=== PATIENT | female | born 1950 | race Caucasian/White ===

== ENCOUNTER → 2023-11-03 13:49 | Outpatient (CLI) | payer MEDICARE, SELFPAY ==
[2023-11-03 14:38] LABS: BUN Creatinine Ratio 22.9 (6-22); Blood Urea Nitrogen 19 mg/dL (7-17); Calcium 10.7 mg/dL (8.4-10.2); Carbon Dioxide 28 mmol/L (22-32); Chloride 108 mmol/L (98-107); Estimated Glomerular Filt Rate > 60 mL/min (>60); Glucose 88 mg/dL (80-110); HEMOLYSIS < 15 (0-50); Potassium 4.6 mmol/L (3.4-5.1); Sodium 138 mmol/L (137-145)
[2023-11-03 15:07] LABS: TSH w/ Reflex to FT4 0.92 uIU/mL (0.47-4.68)
== END ==
PROVIDERS: PCP Family Medicine; Referring Provider Family Medicine; Visit Provider Family Medicine
DX: Z00.00 Encounter for general adult medical examination without abnormal findings (principal); I12.9 Hypertensive chronic kidney disease with stage 1 through stage 4 chronic kidney disease, or unspecified chronic kidney disease; N18.9 Chronic kidney disease, unspecified; E03.9 Hypothyroidism, unspecified
CPT/HCPCS: 36415; 80048; 84443

== ENCOUNTER → 2023-12-14 10:25 | Outpatient (CLI) | payer MEDICARE, SELFPAY ==
[2023-12-14 12:00] LABS: Vitamin D 25 Hydroxy (D3) 89.2 ng/mL (30.0-100.0)
[2023-12-15 11:58] LABS: Ionized Calcium 5.3 mg/dL (4.5-5.6)
[2023-12-15 18:42] LABS: Free Kappa Lt Chains, Serum 17.2 mg/L (3.3-19.4); Free Lambda Lt Chains,Serum 17.9 mg/L (5.7-26.3)
== END ==
PROVIDERS: PCP Family Medicine; Referring Provider Family Medicine; Visit Provider Family Medicine
DX: E83.52 Hypercalcemia (principal)
CPT/HCPCS: 36415; 82306; 82330; 83883; 83970; 84155; 84165

== ENCOUNTER → 2024-06-07 14:02 | Outpatient (CLI) | payer MEDICARE, SELFPAY ==
--- NOTE | 2024-06-07 14:04 | DI.RAD.S_ITS ---
PROCEDURE: XR DEXA AXIAL SKELETON INDICATIONS: hyperparathyroidism COMPARISON: None. FINDINGS: Lumbar Spine: Bone mineral density 0.78 g/cm2, T score -2.5 Left Hip: Bone mineral density 0.72 g/cm2, T score -1.8,. Left Femoral Neck: Bone mineral density 0.54 g/cm2, T score -2.8,. Right Hip: Bone mineral density 0.70 g/cm2, T score -2,. Right Femoral Neck: Bone mineral density 0.55 g/cm2, T score -2.7,. Fracture Risk Calculation (when applicable): 10-year fracture risk of a major osteoporotic fracture 18 percent and of a hip fracture 6.4 percent. (T score greater or equal to -1.0 to: NORMAL) (T score from -1.1 to -2.4: OSTEOPENIA) (T score less than or equal to -2.5: OSTEOPOROSIS) IMPRESSION: Osteoporosis. Follow-up guidelines as follows: Osteoporosis: Consider a repeat DEXA and Vertebral Fracture Assessment (VFA) exam in 2 years or sooner if medically necessary, to reassess this patient's status. Osteopenia: Consider a repeat DEXA in 2-3 years to reassess this patient's status, or if there is a new clinical indication. Normal: Consider a repeat DEXA in 5 years or sooner, or if there is a new clinical indication. All treatment decisions require clinical judgment and consideration of individual patient factors, including patient preferences, comorbidities, previous drug use, risk factors not captured in the FRAX model (e.g., frailty, falls, vitamin D deficiency, increased bone turnover, interval significant decline in bone density ) and possible under- or over-estimation of fracture risk by FRAX. In addition, the NOF Guide recommends that FDA-approved medical therapies be considered in postmenopausal women and men age >= 50 years with a: * Hip or vertebral (clinical or morphometric) fracture * T-score of <=-2.5 at the spine or hip * Ten-year fracture probability by FRAX of >= 3% for hip fracture or >=20% for major osteoporotic fracture. People with diagnosed cases of osteoporosis or at high risk for fracture should have regular bone mineral density tests. For patients eligible for Medicare, routine testing is allowed once every 2 years. The testing frequency can be increased to one year for patients who have rapidly progressing disease, those who are receiving or discontinuing medical therapy to restore bone mass, or have additional risk factors. Dictated by: Juni Morin M.D. on 06/07/2024 at 17:20 Approved by: Juni Morin M.D. on 06/07/2024 at 17:21
== END ==
LOC: RAD 14:03
PROVIDERS: PCP Family Medicine; Referring Provider Student in an Organized Health Care Education/Training Program; Visit Provider Student in an Organized Health Care Education/Training Program
DX: E21.3 Hyperparathyroidism, unspecified (principal); M81.0 Age-related osteoporosis without current pathological fracture
CPT/HCPCS: 77080

== ENCOUNTER → 2024-11-08 13:30 | Outpatient (CLI) | payer MEDICARE, SELFPAY ==
[2024-11-08 14:58] LABS: Albumin 4.3 g/dL (3.5-5.0); BUN Creatinine Ratio 20.2 (6-22); Blood Urea Nitrogen 17 mg/dL (7-17); Calcium 10.5 mg/dL (8.4-10.2); Carbon Dioxide 24 mmol/L (22-32); Chloride 105 mmol/L (98-107); Cholesterol 189 mg/dL (140-199); Estimated Glomerular Filt Rate > 60 mL/min (>60); Glucose 100 mg/dL (70-99); HDL Cholesterol 63 mg/dL (40-60); HEMOLYSIS < 15 (0-50); LDL Cholesterol Calculated 94 mg/dL (<100); Phosphorous 3.4 mg/dL (2.8-4.1); Potassium 4.1 mmol/L (3.4-5.1); Sodium 139 mmol/L (137-145); Triglycerides 161 mg/dL (35-150)
[2024-11-08 15:28] LABS: TSH w/ Reflex to FT4 2.58 uIU/mL (0.47-4.68)
[2024-11-08 16:31] LABS: Vitamin D 25 Hydroxy (D3) 117 ng/mL (30.0-100.0)
[2024-11-09 15:28] LABS: Hep C Virus Ab w/Reflex Quant NEGATIVE s/c (NEGATIVE)
== END ==
LOC: LAB 13:31
PROVIDERS: PCP Family Medicine; Referring Provider Family Medicine; Visit Provider Family Medicine
DX: Z00.00 Encounter for general adult medical examination without abnormal findings (principal); I12.9 Hypertensive chronic kidney disease with stage 1 through stage 4 chronic kidney disease, or unspecified chronic kidney disease; N18.9 Chronic kidney disease, unspecified; E21.3 Hyperparathyroidism, unspecified; E03.9 Hypothyroidism, unspecified
CPT/HCPCS: 36415; 80061; 80069; 82306; 82310; 83970; 84443; 86803

== ENCOUNTER 2024-12-25 08:20 | Day surgery (SDC) | payer MEDICARE, SELFPAY ==
[2024-12-25 08:56] VITALS: BP 167/90; PULSE 71; RESP 13; TEMP 36.4; O2SAT 97
--- NOTE | 2024-12-25 09:07 | P.HP_ITS ---
History of Present Illness History of Present Illness Date Patient Seen: 12/25/24 Chief complaint: Colonoscopy Narrative: Follow-up screening colonoscopy for history of polyps [facility] Medical History (Updated 11/08/24 @ 13:45 by Daniel Shukla DO) Hyperparathyroidism Osteopenia (~2019) Ankle fracture (~1984) Cataracts, bilateral (~2022) CKD (chronic kidney disease) (~2019) Encounter for subsequent annual wellness visit (AWV) in Medicare patient Benign essential HTN (~2013) Hypothyroidism Surgical History (Updated 12/15/23 @ 19:38 by Antonette Johnson) Anesthesia History of partial thyroidectomy (~02/1972) History of section Melanoma (~1998) Family History (Updated 12/15/23 @ 19:40 by Antonette Johnson) Father History of heart disease Mother Cancer Sister History of heart attack History of heart disease Social History Smoking Status: Former smoker alcohol intake: current Meds Home Medications and Allergies Home Medications ?Medication ?Instructions ?Recorded ?Confirmed ?Type lisinopril 20 mg tablet 20 mg PO DAILY #90 tabs 10/1712/25/24 Rx amlodipine 2.5 mg tablet (Norvasc) 2.5 mg PO DAILY blo od pressure #90 11/08/24 12/25/24 Rx tabs levothyroxine 100 mcg tablet 100 mcg PO DAILY #90 tabs 11/08/24 12/25/24 Rx sodium,potassium,mag sulfates 17.5 See Rx Instructions PO .COMPLEX 11/16/24 Rx gram-3.13 gram-1.6 gram oral soln #354 mL (Suprep Bowel Prep Kit) Allergies Allergy/AdvReac Type Severity Reaction Status Date / Time Penicillins AdvReac Unknown Verified 12/25/24 08:54 Exam Vital Signs (past 8 hours): - 12/25/24 08:56 Temperature 97.6 F Pulse Rate 71 Respiratory Rate 13 Blood Pressure 167/90 H Pulse Oximetry 97 Oxygen Delivery Method Room Air Oxygen Delivery Method Room Air Narrative Exam Narrative: Oropharynx free of lesions Chest clear to auscultation percussion Cardiac exam reveals no S3 or murmur Assessment & Plan Assessment & Plan narrative: History of colon polyps need for follow-up colonoscopy at a 5 year interval. Risks, benefits, alternatives have been explained. Time-Based Coding :: [TOTAL MINUTES] spent with patient and on the chart (including review of chart, obtaining history, exam, reviewing outside data, placing orders, documenting exam and treatment plan, and counseling patient) on [DATE]. [employer] Analysis Manager Document charge(s): No
[2024-12-25] MEDS: LACTATED RINGERS 1,000 ML 84 ML IV (09:10)
--- NOTE | 2024-12-25 09:10 | PM.OP.COLON ---
Operative Date/Time/Diagnoses Date of procedure: 12/25/24 Time of procedure: 09:31 Pre-op diagnosis: See indication and findings Post-op diagnosis: same Procedure & Clinicians Study performed: Colonoscopy Same procedure as scheduled: Yes Indications: History of polyps Surgeon: Wendy Cotton Procedure Notes Procedure in detail: After informed consent was obtained the patient was placed in left lateral decubitus position. Video colonoscope was introduced the rectum slowly advanced cecum. Preparation was good. On slow withdrawal mucosa was carefully examined. The scope was removed. The patient tolerated procedure well. Blood loss none Complications none Sedation mac Findings 1. Moderate left-sided diverticulosis 2. Otherwise negative colonoscopy to cecum Patient should have follow-up colonoscopy in 5 years
[2024-12-25 09:33] VITALS: BP 113/62; PULSE 69; RESP 15; TEMP 36.2; O2SAT 90
[2024-12-25 09:37] VITALS: BP 122/62; PULSE 64; RESP 14; O2SAT 93
[2024-12-25 09:44] VITALS: BP 133/70; PULSE 70; RESP 13; TEMP 36.3; O2SAT 97
== END 2024-12-25 10:06 | disposition home or self-care (01) ==
PROVIDERS: PCP Family Medicine; Referring Provider Internal Medicine Gastroenterology; Visit Provider Internal Medicine Gastroenterology
PROC: 0DJD8ZZ Inspection of Lower Intestinal Tract, Via Natural or Artificial Opening Endoscopic (ICD-10-PCS; CPT 45378; principal; 2024-12-25 09:30)
DX: Z12.11 Encounter for screening for malignant neoplasm of colon (principal); Z86.0100 Personal history of colon polyps, unspecified; K57.30 Diverticulosis of large intestine without perforation or abscess without bleeding; E21.3 Hyperparathyroidism, unspecified; I12.9 Hypertensive chronic kidney disease with stage 1 through stage 4 chronic kidney disease, or unspecified chronic kidney disease; N18.9 Chronic kidney disease, unspecified; E03.9 Hypothyroidism, unspecified; Z87.891 Personal history of nicotine dependence
CPT/HCPCS: G0105; J2704

== ENCOUNTER → 2025-02-20 07:52 | Outpatient (CLI) | payer MEDICARE, SELFPAY ==
[2025-02-20 09:49] LABS: Albumin 4.4 g/dL (3.5-5.0); Blood Urea Nitrogen 16 mg/dL (7-17); Calcium 10.0 mg/dL (8.4-10.2); Carbon Dioxide 26 mmol/L (22-32); Chloride 107 mmol/L (98-107); Estimated Glomerular Filt Rate > 60 mL/min (>60); Glucose 89 mg/dL (70-99); HEMOLYSIS < 15 (0-50); Phosphorous 3.2 mg/dL (2.8-4.1); Potassium 4.4 mmol/L (3.4-5.1); Sodium 138 mmol/L (137-145)
[2025-02-20 10:05] LABS: Vitamin D 25 Hydroxy (D3) 77.3 ng/mL (30.0-100.0)
[2025-02-20 10:06] LABS: Free T4, Direct Thyroxine 1.27 ng/dL (0.78-2.19)
[2025-02-20 10:20] LABS: Thyroid Stimulating Hormone 1.36 uIU/mL (0.47-4.68)
== END ==
PROVIDERS: PCP Family Medicine; Referring Provider Family Medicine; Visit Provider Student in an Organized Health Care Education/Training Program
DX: E67.3 Hypervitaminosis D (principal)
CPT/HCPCS: 36415; 80069; 82306; 84439; 84443

== ENCOUNTER → 2025-06-16 07:51 | Outpatient (CLI) | payer MEDICARE, SELFPAY ==
[2025-06-16 11:23] LABS: Albumin 4.2 g/dL (3.5-5.0); Blood Urea Nitrogen 15 mg/dL (7-17); Calcium 10.1 mg/dL (8.4-10.2); Carbon Dioxide 26 mmol/L (22-32); Chloride 108 mmol/L (98-107); Estimated Glomerular Filt Rate > 60 mL/min (>60); Glucose 88 mg/dL (70-99); HEMOLYSIS < 15 (0-50); Phosphorous 3.6 mg/dL (2.8-4.1); Potassium 4.8 mmol/L (3.4-5.1); Sodium 141 mmol/L (137-145)
[2025-06-16 11:38] LABS: Free T4, Direct Thyroxine 1.38 ng/dL (0.78-2.19); Vitamin D 25 Hydroxy (D3) 53.2 ng/mL (30.0-100.0)
[2025-06-16 11:52] LABS: Thyroid Stimulating Hormone 3.16 uIU/mL (0.47-4.68)
[2025-06-17 08:08] LABS: Calcium 10.0 mg/dL (8.7-10.3); Parathyroid Hormone, Intact 108 pg/mL (15-65)
== END ==
PROVIDERS: PCP Family Medicine; Referring Provider Student in an Organized Health Care Education/Training Program; Visit Provider Student in an Organized Health Care Education/Training Program
DX: E67.3 Hypervitaminosis D (principal)
CPT/HCPCS: 36415; 80069; 82306; 82310; 83970; 84439; 84443